=== PATIENT | female | born 1980 | race Caucasian/White ===

== ENCOUNTER 2022-04-25 18:35 | Emergency (ER) | payer OTHER, BC | END 2022-04-25 20:06 | disposition home or self-care (01) | LOC: CSHERS 18:35 | DX: S82.832A Other fracture of upper and lower end of left fibula, initial encounter for closed fracture (principal); W01.0XXA Fall on same level from slipping, tripping and stumbling without subsequent striking against object, initial encounter; Y92.524 Gas station as the place of occurrence of the external cause ==